=== PATIENT | female | born 1950 | race Caucasian/White ===

== ENCOUNTER 2023-12-31 12:15 | Emergency (ER) | payer MEDICARE, BC ==
[~2023-12-31] VITALS: Ht 160 cm; Wt 61.6 kg
[2023-12-31 12:21] VITALS: BP 152/69; PULSE 70; RESP 18; TEMP 98.2; O2SAT 96
[2023-12-31] MEDS ORDERED: AMOX-580 PO (13:29)
[2023-12-31] MEDS: rabies immune globulin/PF 150 unit/ml inj IMVAC ONE (14:02)
[2023-12-31] MEDS: rabies vaccine (PCEC)/PF 2.5 unit kit IMVAC ONE (14:04)
[2023-12-31] MEDS: TETanus/Pertussis (Acell)/Diphther VAC/PF (Tdap-Adult) 0.5ml syringe IMVAC ONE (14:05)
[2023-12-31] MEDS: mupirocin 2% ointment 22GM TP ONE (14:05)
[2023-12-31] MEDS: HYDROcodone/acetaminophen 10/325mg tab PO ONE (14:37)
== END 2023-12-31 15:02 | disposition home or self-care (01) ==
LOC: ER 12:16
DX: S50.12XA Contusion of left forearm, initial encounter (principal); W54.0XXA Bitten by dog, initial encounter; Y93.89 Activity, other specified; Y92.89 Other specified places as the place of occurrence of the external cause; Y99.8 Other external cause status
CPT/HCPCS: 90375; 90472; 90675; 90715; 96372; 99284; A6258; A6402; A6446; G0008; 90376; 90471; A6449

== ENCOUNTER 2024-01-03 05:29 | Emergency (ER) | payer MEDICARE, BC ==
[~2024-01-03] VITALS: Ht 157.5 cm; Wt 61.4 kg
[~2024-01-03 05:29] MED LIST: AMOX-580 PO
[2024-01-03 05:33] VITALS: BP_SYST 143; PULSE 63; RESP 16; TEMP 98.3; O2SAT 99
[2024-01-03] MEDS ORDERED: AMOX-580 PO (06:26)
[2024-01-03] MEDS: rabies vaccine (PCEC)/PF 2.5 unit kit IMVAC ONE (06:46)
== END 2024-01-03 06:55 | disposition home or self-care (01) ==
LOC: ER 05:30
DX: T14.8XXD Other injury of unspecified body region, subsequent encounter (principal); W54.0XXD Bitten by dog, subsequent encounter; Z23 Encounter for immunization
CPT/HCPCS: 90675; 99283; G0008; 90471

== ENCOUNTER 2024-01-07 05:03 | Emergency (ER) | payer MEDICARE, BC ==
[~2024-01-07] VITALS: Ht 157.5 cm; Wt 62.7 kg
[2024-01-07] MEDS: rabies vaccine (PCEC)/PF 2.5 unit kit IMVAC ONE (06:40)
[2024-01-07 06:51] VITALS: BP 129/75; PULSE 61; RESP 16; TEMP 98.6; O2SAT 98
== END 2024-01-07 06:53 | disposition home or self-care (01) ==
LOC: ER 05:04
DX: T14.8XXD Other injury of unspecified body region, subsequent encounter (principal); W54.0XXD Bitten by dog, subsequent encounter; I48.91 Unspecified atrial fibrillation
CPT/HCPCS: 90675; 99281; G0008; 90471; 99283

== ENCOUNTER 2024-01-16 05:58 | Emergency (ER) | payer MEDICARE, BC ==
[~2024-01-16] VITALS: Ht 157.5 cm; Wt 61.4 kg
[2024-01-16 06:07] VITALS: TEMP 98.2
[2024-01-16] MEDS: rabies vaccine (PCEC)/PF 2.5 unit kit IMVAC ONE (09:21)
[2024-01-16 09:47] VITALS: BP 142/71; PULSE 62; RESP 16; O2SAT 97
== END 2024-01-16 09:49 | disposition home or self-care (01) ==
LOC: ER 05:59
DX: T14.8XXD Other injury of unspecified body region, subsequent encounter (principal); W54.0XXD Bitten by dog, subsequent encounter
CPT/HCPCS: 90675; 99281; G0008; 90471